=== PATIENT | male | born 1975 | race Caucasian/White ===

== ENCOUNTER → 2016-10-18 | Outpatient (CLI) | payer OTHER ==
[~2016-10-18] VITALS: Ht 177.8 cm; Wt 91.2 kg
[~2016-10-18] MED LIST: ASPI81TA85 PO; FERR325T; LIDOCAINE 2% INJ 100 MG/5 ML SDV (FOR ANES.) As Ordered ONE; NEXI20CA; NS 1,000 ML IV ONE; PROPOFOL 200 MG/20 ML VIAL As Ordered ONE; fentaNYL 100 MCG/2 ML INJECTION (J3010) As Ordered ONE
--- NOTE | 2016-10-18 13:05 | ROOR ---
Patient Name: Eduar Berry Procedure Date: 10/18/2016 12:47 PM Date of : 1975 Age: 41 Room: [facility] Gender: Male Note Status: Finalized Procedure: Upper GI endoscopy + Small bowel bx. Indications: Iron deficiency anemia, Unexplained iron deficiency anemia Providers: Hi Lopez MD Referring MD: CATIA BARDALES MD Requesting Provider: Medicines: Monitored Anesthesia Care Complications: No immediate complications. Procedure: Pre-Anesthesia Assessment: - The heart rate, respiratory rate, oxygen saturations, blood pressure, adequacy of pulmonary ventilation, and response to care were monitored throughout the procedure. The Endoscope was introduced through the mouth, and advanced to the second part of duodenum. The upper GI endoscopy was accomplished without difficulty. The patient tolerated the procedure well. Findings: The Z-line was irregular and was found 40 cm from the incisors. No other significant abnormalities were identified in a careful examination of the stomach. The exam of the duodenum was otherwise normal. Biopsies for histology were taken with a cold forceps in the first portion of the duodenum for evaluation of celiac disease. The exam was otherwise without abnormality. Impression: - Z-line irregular, 40 cm from the incisors. - The examination was otherwise normal. - Biopsies were taken with a cold forceps for evaluation of celiac disease. - The examination was otherwise normal. Recommendation: - Patient has a contact number available for emergencies. The signs and symptoms of potential delayed complications were discussed with the patient. Return to normal activities tomorrow. Written discharge instructions were provided to the patient. - High fiber diet. - Discharge patient to home. - Follow an antireflux regimen. - Continue present medications. - Await pathology results. - Telephone GI clinic for pathology results in 1 week. - Return to referring physician. - The findings and recommendations were discussed with the patient's family. Hi Lopez MD Hi Lopez MD 10/18/2016 1:05:31 PM This report has been signed electronically. Number of Addenda: 0 Note Initiated On: 10/18/2016 12:47 PM Estimated Blood Loss: Estimated blood loss: none.
--- NOTE | 2016-10-18 13:25 | ROOR ---
Patient Name: Eduar Berry Procedure Date: 10/18/2016 12:48 PM Date of : 1975 Age: 41 Room: [facility] Gender: Male Note Status: Finalized Procedure: Total Colonoscopy to Cecum + Hot Snare Polypectomy + Hemoclip Indications: Iron deficiency anemia Providers: Hi Lopez MD Referring MD: CATIA BARDALES MD Requesting Provider: Medicines: Monitored Anesthesia Care Complications: No immediate complications. Procedure: Pre-Anesthesia Assessment: - The heart rate, respiratory rate, oxygen saturations, blood pressure, adequacy of pulmonary ventilation, and response to care were monitored throughout the procedure. The Colonoscope was introduced through the anus and advanced to the cecum, identified by appendiceal orifice and ileocecal valve. The colonoscopy was performed without difficulty. The patient tolerated the procedure well. The quality of the bowel preparation was excellent. Findings: The perianal and digital rectal examinations were normal. Non-bleeding internal hemorrhoids were found during retroflexion. The hemorrhoids were small and Grade I (internal hemorrhoids that do not prolapse). A medium polyp was found at 20 cm proximal to the anus. The polyp was pedunculated. The polyp was removed with a hot snare. Resection and retrieval were complete. To prevent bleeding after the polypectomy, one hemostatic clip was successfully placed (MR conditional). There was no bleeding at the end of the procedure. The exam was otherwise without abnormality on direct and retroflexion views. Impression: - Non-bleeding internal hemorrhoids. - One medium polyp at 20 cm proximal to the anus, removed with a hot snare. Resected and retrieved. Clip (MR conditional) was placed. - The examination was otherwise normal on direct and retroflexion views. - The exam was otherwise normal to the cecum. Recommendation: - Patient has a contact number available for emergencies. The signs and symptoms of potential delayed complications were discussed with the patient. Return to normal activities tomorrow. Written discharge instructions were provided to the patient. - High fiber diet. - Discharge patient to home. - Continue present medications. - Await pathology results. - Telephone GI clinic for pathology results in 1 week. - Repeat colonoscopy for surveillance based on pathology results. - Return to referring physician. - The findings and recommendations were discussed with the patient's family. Hi Lopez MD Hi Lopez MD 10/18/2016 1:25:35 PM This report has been signed electronically. Number of Addenda: 0 Note Initiated On: 10/18/2016 12:48 PM Estimated Blood Loss: Estimated blood loss: none.
[2016-10-18 13:45] VITALS: BP 132/89
== END | disposition home or self-care (01) ==
LOC: M OPP 11:08
PROVIDERS: ATTEND Internal Medicine Gastroenterology
DX: D50.9 Iron deficiency anemia, unspecified (principal); K64.0 First degree hemorrhoids; K51.40 Inflammatory polyps of colon without complications; K22.8 Other specified diseases of esophagus; K21.9 Gastro-esophageal reflux disease without esophagitis; D68.59 Other primary thrombophilia; Z83.79 Family history of other diseases of the digestive system; Z79.82 Long term (current) use of aspirin; Z88.2 Allergy status to sulfonamides; Z88.1 Allergy status to other antibiotic agents
CPT/HCPCS: 43239; 45385; 88305; J3010

== ENCOUNTER → 2020-11-06 | Outpatient (CLI) | payer OTHER ==
[~2020-11-06] MED LIST changes: -ASPI81TA85 PO; +ASPI81TA86 PO; +FERR1TAB8; -FERR325T; -LIDOCAINE 2% INJ 100 MG/5 ML SDV (FOR ANES.) As Ordered ONE; -NS 1,000 ML IV ONE; -PROPOFOL 200 MG/20 ML VIAL As Ordered ONE; -fentaNYL 100 MCG/2 ML INJECTION (J3010) As Ordered ONE
--- NOTE | 2020-11-06 15:39 | REP ---
INDICATION: PAIN IN RT SHOULDER. COMPARISON: None. TECHNIQUE: Coronal oblique T1 and fat suppressed T2. Sagittal oblique fat suppressed T2. Axial [id number] and T2 FLASH. FINDINGS: There is mild hypertrophic degenerative change seen involving the acromioclavicular joint. The acromion process is a minimal type 2. Patchy and linear T2 hyper signal is seen in the supraspinatus tendon. There is no supraspinatus muscle atrophy or musculotendinous retraction. Mild patchy T2 hyper signal is seen in the subscapularis tendon. Mild to moderate patchy T2 hyper signal is seen in the infraspinatus tendon. The teres minor tendon is unremarkable. The biceps tendon resides within the bicipital groove. There is no glenohumeral joint effusion or abnormal fluid in the subcoracoid recess. There is no evidence of coracohumeral or coracoacromial ligamentous thickening. There is no definite abnormal labral signal. The marrow signal is within normal limits. IMPRESSION: There is evidence of supraspinatus, infraspinatus, and subscapularis tendinitis/tendinosis. There is no evidence of a full-thickness tear. 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 Other findings as described above. <Electronically signed by Ajay Toledo > 11/06/20 [id number]
== END ==
LOC: M PLARAD 13:32
PROVIDERS: ATTEND Family Medicine
DX: M19.011 Primary osteoarthritis, right shoulder (principal); M77.8 Other enthesopathies, not elsewhere classified; M25.511 Pain in right shoulder

== ENCOUNTER → 2022-04-30 | Outpatient (CLI) | payer OTHER | LOC: M RAD 15:59 | PROVIDERS: ATTEND Family Medicine | DX: N39.0 Urinary tract infection, site not specified (principal); N50.819 Testicular pain, unspecified ==

== ENCOUNTER 2022-09-11 09:41 | Day surgery (SDC) | payer OTHER ==
[~2022-09-11] VITALS: Ht 177.8 cm; Wt 93.4 kg
[~2022-09-11 09:41] MED LIST changes: +ALLO100T PO; +B-12100010 PO; +BAYE81TA10 PO; -FERR1TAB8; +FERR1TAB8 PO; +NS 1,000 ML IV ONE
[2022-09-11] MEDS ORDERED: propofoL 200 MG/20 ML VIAL As Ordered ONE (11:17)
[2022-09-11] MEDS ORDERED: LIDOCAINE 2% 100MG/5ML SDV (FOR ANES.) As Ordered ONE (11:17)
[2022-09-11 12:17] VITALS: BP 126/80
== END 2022-09-11 12:18 | disposition home or self-care (01) ==
LOC: M OPP 09:41
PROVIDERS: ATTEND Internal Medicine Gastroenterology
DX: D50.9 Iron deficiency anemia, unspecified (principal); K64.0 First degree hemorrhoids; K21.00 Gastro-esophageal reflux disease with esophagitis, without bleeding; K29.40 Chronic atrophic gastritis without bleeding; Z79.82 Long term (current) use of aspirin; Z79.899 Other long term (current) drug therapy; Z88.2 Allergy status to sulfonamides